=== PATIENT | female | born 1990 | race Caucasian/White ===

== ENCOUNTER 2019-03-09 17:50 | Emergency (ER) | payer OTHER, MEDICAID ==
[~2019-03-09] VITALS: Ht 152.4 cm; Wt 52.2 kg
[2019-03-09 18:01] VITALS: BP 105/66; Ht 152.4 cm; Wt 52.2 kg
== END 2019-03-09 18:31 | disposition home or self-care (01) ==
LOC: ED 17:50
DX: J02.9 Acute pharyngitis, unspecified (principal); J30.9 Allergic rhinitis, unspecified